=== PATIENT | female | born 1980 ===

== ENCOUNTER 2021-05-30 11:18 | Inpatient (IN) ==
[2021-05-30 13:21] LABS: Basophils % 0.5 % (0.0-0.8); Eosinophils % 0.5 % (0.00-10.9); Hematocrit 18.2 VOL% (35.7-47.0); Immature Granulocytes % 9.9 %; Immature Granulocytes Absolute 0.84 #; Lymphocytes % 12.1 % (21.3-54.2); Mean Corpuscular HGB Conc 31.9 GM/DL (32-36); Mean Corpuscular Volume 98.9 FL (87-102); Mean Platelet Volume 10.1 FL (9.6-12.0); Monocytes % 5.2 % (1.7-12.7); NRBC # 0.03 10*3/uL; Neutrophils % 71.8 % (38.7-73.9); Platelet Count 169 T/CUMM (130-400); Red Blood Count 1.84 MC/CUMM (3.8-5.5); Red Cell Distribution Width 13.5 % (9.3-17.3); White Blood Count 8.5 T/CUMM (4-12)
[2021-05-30 13:23] LABS: Hemoglobin 5.8 GM/DL (12.0-16.0)
[2021-05-30 13:29] LABS: Alanine Aminotransferase 17 U/L (13-56); Albumin 3.1 G/DL (3.4-5.0); Alkaline Phosphatase 122 U/L (45-117); Aspartate Amino Transferase 13 U/L (0-37); Bilirubin,Total < 0.39 MG/DL (0.20-1.00); Blood Urea Nitrogen 167 MG/DL (7-18); Calcium 6.3 MG/DL (8.5-10.1); Carbon Dioxide 4 MMOL/L (21-32); Estimated Glom Filtration Rate 2 ML/MIN; Glucose 62 MG/DL (74-106); Potassium 4.8 MMOL/L (3.5-5.1); Sodium 136 MMOL/L (136-145); Total Protein 7.5 G/DL (6.4-8.2)
[2021-05-30 13:51] LABS: Bilirubin,Urine Negative (Negative); Blood, Urine Small mg/dL (Negative); Glucose,Urine (UA) Negative (Negative); Hyaline Casts,Urine 3 /LPF (0-3); Ketones,Urine Negative (Negative); Nitrite,Urine Negative (Negative); Protein,Urine >=500 MG/DL; RBC,Urine 3 /HPF (0-4); Squamous Epithelial Cell,Urine Occasional /HPF (0-10); Urine Appearance CLOUDY (Clear); Urine Color Yellow (Yellow); Urine Specific Gravity 1.013 (1.001-1.035); Urine Urobilinogen < 2.0 EU/DL (0.2-1.0)
[2021-05-30 13:56] LABS: Anisocytosis 2+; Band Neutrophils 7 % (0-10); Burr Cells Slight; Lymphocytes 14 % (20-55); Metamyelocytes 3 %; Myelocytes 2 %; Segmented Neutrophils 73 % (50-85); Total Cells Counted 100
[2021-05-30 13:57] LABS: Macrocytosis 2+; Microcytosis Slight; Platelet Estimate Normal
[2021-05-30 13:58] LABS: Poikilocytosis Few; Polychromasia Few; Tear Drop Cells Few
[2021-05-30] MEDS ORDERED: GLUCAGON 1 MG VIAL IM PRN (15:02)
[2021-05-30] MEDS ORDERED: DEXTROSE 50% 25 GM/50 ML VIAL IV PRN (15:02)
[2021-05-30] MEDS ORDERED: hydrALAZINE 20 MG/1 ML VIAL IV PRN (15:04)
[2021-05-30] MEDS ORDERED: ACETAMINOPHEN 325 MG TABLET PO PRN (15:04)
[2021-05-30] MEDS ORDERED: SODIUM CHLORIDE 0.9% 1,000 ML IV PRN (15:10)
[2021-05-30] MEDS: PANTOPRAZOLE 40 MG TABLET PO SCH (16:01)
[2021-05-30] MEDS: cefTRIAXone 1,000 MG in SODIUM CHLORIDE 0.9% 100 ML IV SCH (16:02)
[2021-05-30] MEDS: INSULIN LISPRO 100 UNIT/ML SUBCUT SCH ×2 (17:23→20:17)
[2021-05-30 17:58] LABS: ABG Base Excess -26.4 MMOL/L (-2.5-2.5); ABG HCO3 5.1 MMOL/L (20-26); ABG Oxygen Saturation 68.4 % (95-100); ABG PO2 50.3 MM HG (80-95); ABG TCO2 3.7 MMOL/L (23-27)
[2021-05-30 18:00] LABS: ABG PCO2 15.9 MM HG (35-48); ABG PH 6.959 (7.35-7.45)
[2021-05-30] MEDS ORDERED: SODIUM BICARB INJ 150 MEQ in STERILE WATER INJ 850 ML IV SCH (18:30)
[2021-05-30] MEDS: SODIUM BICARBONATE 50 MEQ/50 ML VIAL IV SCH ×2 (18:59→19:00)
[2021-05-30] MEDS: SODIUM BICARB INJ 150 MEQ in DEXTROSE 5% 850 ML IV SCH (19:47)
[2021-05-30 20:58] LABS: Hepatitis B Core IgM Quant 0.05 Index; Hepatitis B Surface Ag Quant < 0.10 Index; Hepatitis B Surface Ag Result Non-Reactive (NonReactive); Hepatitis C Virus Ab Quant 0.06 Index; Hepatitis C Virus Ab Result Non-Reactive (NonReactive)
[2021-05-30] MEDS: HEPARIN 5,000 UNIT/1 ML VIAL SUBCUT SCH (21:50)
[2021-05-31] MEDS: ONDANSETRON 4 MG/2 ML VIAL IV PRN ×3 (01:05→15:36)
[2021-05-31 04:57] LABS: Basophils % 0.3 % (0.0-0.8); Eosinophils % 0.2 % (0.00-10.9); Hematocrit 22.9 VOL% (35.7-47.0); Immature Granulocytes % 4.9 %; Immature Granulocytes Absolute 0.31 #; Lymphocytes # 0.5 10*3/uL (1.4-4.0); Lymphocytes % 8.1 % (21.3-54.2); Mean Corpuscular HGB Conc 35.4 GM/DL (32-36); Mean Corpuscular Volume 87.7 FL (87-102); Mean Platelet Volume 10.1 FL (9.6-12.0); Monocytes % 6.5 % (1.7-12.7); NRBC # 0.02 10*3/uL; Platelet Count 173 T/CUMM (130-400); White Blood Count 6.3 T/CUMM (4-12)
[2021-05-31 05:08] LABS: Red Blood Count 2.61 MC/CUMM (3.8-5.5)
[2021-05-31 05:09] LABS: Hemoglobin 8.1 GM/DL (12.0-16.0)
[2021-05-31 05:21] LABS: Calcium 6.7 MG/DL (8.5-10.1); Osmolality,Calculated 296.5 MOS/KG (273-304)
[2021-05-31 05:48] LABS: Band Neutrophils 1 % (0-10); Lymphocytes 8 % (20-55); Nucleated Red Blood Cells 1 (0-5); Platelet Estimate Normal; Segmented Neutrophils 88 % (50-85); Total Cells Counted 100
[2021-05-31 06:18] LABS: Potassium 2.4 MMOL/L (3.5-5.1)
[2021-05-31] MEDS: HYDROCORTISONE 100 MG VIAL IV SCH ×3 (09:04→21:51)
[2021-05-31] MEDS: POTASSIUM CHLORIDE 20 MEQ TABLET PO SCH ×3 (09:05→16:12)
[2021-05-31] MEDS: HEPARIN 5,000 UNIT/1 ML VIAL SUBCUT SCH ×2 (09:05→21:41)
[2021-05-31] MEDS: SODIUM BICARB INJ 150 MEQ in DEXTROSE 5% 850 ML IV SCH (09:06)
[2021-05-31] MEDS: PANTOPRAZOLE 40 MG TABLET PO SCH (09:08)
[2021-05-31] MEDS ORDERED: POTASSIUM CHLORIDE 20 MEQ TABLET PO ONE (12:00)
[2021-05-31 13:36] LABS: Calcium 6.5 MG/DL (8.5-10.1); Osmolality,Calculated 296.7 MOS/KG (273-304); Potassium 2.6 MMOL/L (3.5-5.1)
[2021-05-31] MEDS: INSULIN LISPRO 100 UNIT/ML SUBCUT SCH ×4 (14:26→21:36)
[2021-05-31] MEDS: cefTRIAXone 1,000 MG in SODIUM CHLORIDE 0.9% 100 ML IV SCH (15:37)
[2021-05-31] MEDS ORDERED: POTASSIUM CHLORIDE 20 MEQ TABLET PO SCH (16:00)
[2021-05-31] MEDS: amLODIPine 10 MG TABLET PO SCH (16:10)
[2021-06-01 05:39] LABS: Calcium 6.4 MG/DL (8.5-10.1); Osmolality,Calculated 297.7 MOS/KG (273-304)
[2021-06-01 05:42] LABS: Potassium 2.5 MMOL/L (3.5-5.1)
[2021-06-01] MEDS ORDERED: POTASSIUM CHLORIDE 20 MEQ TABLET PO SCH (06:38)
[2021-06-01] MEDS: INSULIN LISPRO 100 UNIT/ML SUBCUT SCH ×4 (08:14→21:38)
[2021-06-01] MEDS ORDERED: EPOETIN ALFA-EPBX 10,000 UNIT/ML VIAL IV PRN (08:51)
[2021-06-01] MEDS: amLODIPine 10 MG TABLET PO SCH (08:58)
[2021-06-01] MEDS: PANTOPRAZOLE 40 MG TABLET PO SCH (08:58)
[2021-06-01] MEDS: POTASSIUM CHLORIDE 20 MEQ TABLET PO SCH ×3 (08:58→17:08)
[2021-06-01] MEDS: HEPARIN 5,000 UNIT/1 ML VIAL SUBCUT SCH (08:59)
[2021-06-01] MEDS: cefTRIAXone 1,000 MG in SODIUM CHLORIDE 0.9% 100 ML IV SCH (15:32)
[2021-06-02 04:57] LABS: Basophils % 0.4 % (0.0-0.8); Eosinophils # 0.1 10*3/uL (0.0-0.87); Eosinophils % 1.2 % (0.00-10.9); Hematocrit 26.4 VOL% (35.7-47.0); Immature Granulocytes % 1.2 %; Immature Granulocytes Absolute 0.06 #; Lymphocytes # 1.6 10*3/uL (1.4-4.0); Lymphocytes % 32.9 % (21.3-54.2); Mean Corpuscular HGB Conc 34.1 GM/DL (32-36); Mean Corpuscular Volume 90.1 FL (87-102); Mean Platelet Volume 10.2 FL (9.6-12.0); Monocytes % 8.6 % (1.7-12.7); NRBC # 0.02 10*3/uL; Neutrophils % 55.7 % (38.7-73.9); Platelet Count 170 T/CUMM (130-400); Red Blood Count 2.93 MC/CUMM (3.8-5.5); Red Cell Distribution Width 13.7 % (9.3-17.3); White Blood Count 4.9 T/CUMM (4-12)
[2021-06-02] MEDS: HEPARIN 5,000 UNIT/1 ML VIAL SUBCUT SCH ×2 (05:12→08:53)
[2021-06-02 05:31] LABS: Calcium 7.2 MG/DL (8.5-10.1); Osmolality,Calculated 279.7 MOS/KG (273-304); Potassium 3.3 MMOL/L (3.5-5.1)
[2021-06-02] MEDS: INSULIN LISPRO 100 UNIT/ML SUBCUT SCH ×3 (07:40→15:47)
[2021-06-02] MEDS: amLODIPine 10 MG TABLET PO SCH (08:53)
[2021-06-02] MEDS: cefTRIAXone 1,000 MG in SODIUM CHLORIDE 0.9% 100 ML IV SCH (08:53)
[2021-06-02] MEDS: PANTOPRAZOLE 40 MG TABLET PO SCH (08:53)
[2021-06-02] MEDS ORDERED: POTASSIUM CHLORIDE 20 MEQ TABLET PO ONE (15:00)
[2021-06-02 16:03] VITALS: BP 114/65
== END 2021-06-02 16:23 | disposition home or self-care (01) | DRG 811 ==
LOC: N.ED 11:18 → N.EDINP 15:02 → SUATTDRO 15:02 → N.5E 16:34 → N.ICU 18:57 → N.5E 05-31 15:24
PROVIDERS: ADMIT Internal Medicine; ATTEND Internal Medicine